=== PATIENT | female | born 1960 | race Caucasian/White ===

== ENCOUNTER 2017-10-27 19:17 | Emergency (ER) | payer BC, OTHER ==
[~2017-10-27] VITALS: Ht 157.5 cm; Wt 90.9 kg
[2017-10-27 19:26] VITALS: BP 152/85
[2017-10-27 20:05] LABS: BASOPHILS # (AUTO) 0.1 X10'3 (0-0.2); BASOPHILS % (AUTO) 0.5 % (0-1); EOSINOPHILS # (AUTO) 0.3 X10'3 (0-0.9); EOSINOPHILS % (AUTO) 2.9 % (0-6); HEMATOCRIT 38.8 % (35.0-45.0); HEMOGLOBIN 13.5 g/dl (12.0-16.0); LYMPHOCYTES # (AUTO) 3.8 X10'3 (1.1-4.8); LYMPHOCYTES % (AUTO) 36.4 % (21-51); MEAN CORPUSCULAR HEMOGLOBIN 31.8 PG (27.0-31.0); MEAN CORPUSCULAR HGB CONC 34.8 % (33.0-36.5); MEAN CORPUSCULAR VOLUME 91.6 FL (78-98); MEAN PLATELET VOLUME 7.4 FL (7.4-10.4); MONOCYTES # (AUTO) 0.7 X10'3 (0-0.9); MONOCYTES % (AUTO) 6.7 % (2-12); NEUTROPHILS # (AUTO) 5.6 X10'3 (1.8-7.7); NEUTROPHILS % (AUTO) 53.5 % (42-75); PLATELET COUNT 370 X10'3 (140-440); RED BLOOD COUNT 4.24 X10'6 (4.20-5.60); RED CELL DISTRIBUTION WIDTH 13.7 % (11.5-14.5); WHITE BLOOD COUNT 10.5 X10'3 (4.5-11.0)
[2017-10-27 20:30] LABS: ALANINE AMINOTRANSFERASE 40 U/L (12-78); ALBUMIN 3.9 G/DL (3.4-5.0); ALBUMIN/GLOBULIN RATIO 1.1 (1.1-1.5); ALKALINE PHOSPHATASE 62 IU/L (46-116); ANION GAP 13 (8-16); ASPARTATE AMINO TRANSFERASE 26 U/L (10-37); BILIRUBIN,TOTAL 0.2 MG/DL (0.1-1.0); BLOOD UREA NITROGEN 24 MG/DL (7-18); CALCIUM 8.9 MG/DL (8.5-10.1); CHLORIDE 107 MMOL/L (99-107); ETHANOL 0.183 GM/DL (0.0-0.010); GLUCOSE 103 MG/DL (70-104); POTASSIUM 3.3 MMOL/L (3.5-5.1); SODIUM 144 MMOL/L (135-145); TOTAL PROTEIN 7.3 G/DL (6.4-8.2); eGFR 57 ML/MIN
[2017-10-27 20:46] LABS: CLARITY,URINE CLEAR (Clear); COLOR,URINE STRAW (Yellow); GLUCOSE, URINE NEGATIVE (Neg); KETONES,URINE NEGATIVE (Neg); LEUKOCYTE ESTERASE ,URINE NEGATIVE (Neg); NITRITES, URINE NEGATIVE (Neg); OCCULT BLOOD,URINE NEGATIVE (Neg); PH,URINE 5.5 (4.8-8.0); PROTEIN,URINE NEGATIVE (Neg); UROBILINOGEN,URINE 0.2 E.U/dL (0.2-1.0)
[2017-10-27 20:47] LABS: URINE AMPHETAMINE SCREEN NEGATIVE (Neg); URINE BARBITUATE SCREEN NEGATIVE (Neg); URINE BENZODIAZEPINES SCREEN POSITIVE (Neg); URINE CANNABINOID SCREEN NEGATIVE (Neg); URINE COCAINE SCREEN NEGATIVE (Neg); URINE METHADONE SCREEN NEGATIVE (Neg); URINE OPIATE SCREEN NEGATIVE (Neg); URINE PHENCYCLIDINE SCREEN NEGATIVE (Neg)
[2017-10-27 20:53] LABS: UA COLLECTION TYPE CLN CATCH MIDSTREAM
== END 2017-10-28 05:34 | disposition home or self-care (01) ==
LOC: ER 19:17
DX: F32.9 Major depressive disorder, single episode, unspecified (principal); F41.9 Anxiety disorder, unspecified; I10 Essential (primary) hypertension; F10.129 Alcohol abuse with intoxication, unspecified; Z88.1 Allergy status to other antibiotic agents; Z88.2 Allergy status to sulfonamides; Z88.8 Allergy status to other drugs, medicaments and biological substances
CPT/HCPCS: 36415; 80053; 80305; 80320; 81003; 84443; 85025; 93005; 99284; 99285

== ENCOUNTER 2018-03-08 18:07 | Inpatient (IN) | payer BC, OTHER ==
[~2018-03-08] VITALS: Ht 165.1 cm; Wt 98.8 kg
[~2018-03-08 18:07] MED LIST: etomidate 2mg/ml inj. ONE; rocuronium 10mg/ml inj IV ONE
[2018-03-08] MEDS ORDERED: metroNIDAZOLE-Flagyl 500mg/NS 100 ML IV STA (18:33)
[2018-03-08] MEDS ORDERED: piperacillin/tazo 3.375gm/50ml 50 ML IV ONE (18:35)
[2018-03-08] MEDS ORDERED: MIDAZolam 5mg/ml 2ml vial IV ONE (18:35)
[2018-03-08] MEDS ORDERED: midazolam 100mg in NS 100ml 100 ML IV ONE (18:35)
[2018-03-08] MEDS ORDERED: vancomycin/NS 1 GM ADD-VANTAGE 250 ML IV ONE (18:35)
[2018-03-08] MEDS ORDERED: etomidate 2mg/ml inj. IV ONE (18:35)
[2018-03-08] MEDS ORDERED: rocuronium 10mg/ml inj IV ONE (18:35)
[2018-03-08 18:51] LABS: ABG HCO3 17.8 mmol/L (22.0-26.0); ABG OXYGEN SATURATION 97.5 % (95-98); ABG PCO2 (T) 32.8 mmHg (32.0-45.0); ABG PO2 (T) 108.3 mmHg (83-108); ALLEN'S TEST Positive; FMetHb 0.3 % (0.3-1.12); FO2Hb 97.2 % (94-100); MINUTE VOLUME 9 L/min; PATIENT TEMPERATURE 36.3; PEEP 5 cm H2O; RESPIRATORY RATE 18 b/min; RESPIRATORY RATE (OBSERVED) 18 b/min; TIDAL VOLUME 475 mL
[2018-03-08] MEDS ORDERED: RISP1TAB13 PO (18:54)
[2018-03-08] MEDS ORDERED: ALPR1TAB7 PO (18:54)
[2018-03-08] MEDS ORDERED: ZOLP10TA PO (18:54)
[2018-03-08] MEDS ORDERED: BUSP10TA10 PO (18:54)
[2018-03-08] MEDS ORDERED: normal saline 1000ML IV soln IV ONE (18:55)
[2018-03-08] MEDS ORDERED: BENA40TA2 PO (18:58)
[2018-03-08] MEDS ORDERED: HYDR12.55 PO (18:58)
[2018-03-08 18:59] LABS: CLARITY,URINE CLEAR (Clear); COLOR,URINE YELLOW (Yellow); GLUCOSE, URINE NEGATIVE (Neg); KETONES,URINE NEGATIVE (Neg); LEUKOCYTE ESTERASE ,URINE NEGATIVE (Neg); NITRITES, URINE NEGATIVE (Neg); OCCULT BLOOD,URINE TRACE-LYSED (Neg); PH,URINE 5.5 (4.8-8.0); PROTEIN,URINE NEGATIVE (Neg); UA COLLECTION TYPE FOLEY CATH; UROBILINOGEN,URINE 0.2 E.U/dL (0.2-1.0)
[2018-03-08 19:09] LABS: BACTERIA,URINE NONE SEEN /HPF (Neg); MUCUS STRANDS FEW /LPF (Neg); RBC,URINE 0-2 /HPF (0-2); SQUAMOUS EPITHELIAL CELL,UR FEW /LPF (FEW); WBC,URINE 0-4 /HPF (0-4)
[2018-03-08 19:13] LABS: URINE AMPHETAMINE SCREEN NEGATIVE (Neg); URINE BARBITUATE SCREEN NEGATIVE (Neg); URINE BENZODIAZEPINES SCREEN POSITIVE (Neg); URINE CANNABINOID SCREEN NEGATIVE (Neg); URINE COCAINE SCREEN NEGATIVE (Neg); URINE METHADONE SCREEN NEGATIVE (Neg); URINE OPIATE SCREEN NEGATIVE (Neg); URINE PHENCYCLIDINE SCREEN NEGATIVE (Neg)
[2018-03-08 19:18] LABS: ALANINE AMINOTRANSFERASE 45 U/L (12-78); ALBUMIN 3.2 G/DL (3.4-5.0); ALKALINE PHOSPHATASE 54 IU/L (46-116); ANION GAP 13 (8-16); ASPARTATE AMINO TRANSFERASE 34 U/L (10-37); BILIRUBIN,TOTAL 0.1 MG/DL (0.1-1.0); BLOOD UREA NITROGEN 15 MG/DL (7-18); CALCIUM 8.6 MG/DL (8.5-10.1); CHLORIDE 105 MMOL/L (99-107); CREATININE 0.79 MG/DL (0.40-0.90); GLUCOSE 117 MG/DL (70-104); SODIUM 140 MMOL/L (135-145); TOTAL CARBON DIOXIDE 21.8 MMOL/L (24-32); TOTAL PROTEIN 6.5 G/DL (6.4-8.2); eGFR 75 ML/MIN
[2018-03-08 19:24] LABS: ACETAMINOPHEN < 2.0 UG/ML (10-30)
[2018-03-08 19:30] LABS: BASOPHILS % (AUTO) 0.8 % (0-1); EOSINOPHILS # (AUTO) 0.1 X10'3 (0-0.9); EOSINOPHILS % (AUTO) 2.2 % (0-6); HEMATOCRIT 33.7 % (35.0-45.0); HEMOGLOBIN 11.6 g/dl (12.0-16.0); LYMPHOCYTES # (AUTO) 1.7 X10'3 (1.1-4.8); LYMPHOCYTES % (AUTO) 28.9 % (21-51); MEAN CORPUSCULAR HEMOGLOBIN 32.5 PG (27.0-31.0); MEAN CORPUSCULAR HGB CONC 34.4 % (33.0-36.5); MEAN CORPUSCULAR VOLUME 94.6 FL (78-98); MEAN PLATELET VOLUME 7.2 FL (7.4-10.4); MONOCYTES # (AUTO) 0.5 X10'3 (0-0.9); MONOCYTES % (AUTO) 8.8 % (2-12); NEUTROPHILS # (AUTO) 3.4 X10'3 (1.8-7.7); NEUTROPHILS % (AUTO) 59.3 % (42-75); PLATELET COUNT 207 X10'3 (140-440); RED BLOOD COUNT 3.56 X10'6 (4.20-5.60); RED CELL DISTRIBUTION WIDTH 14.7 % (11.5-14.5); WHITE BLOOD COUNT 5.7 X10'3 (4.5-11.0)
[2018-03-08] MEDS ORDERED: potassium 10mEq/100ml NS w/LIDOcaine (10mg/bag) IV ONE (19:40)
[2018-03-08] MEDS: magnesium/D5W IVPB 100 ML IV SCH ×2 (19:46→20:40)
[2018-03-08] MEDS ORDERED: sodium bicarbonate inj. 133.8 MEQ in dextrose 5%-water 1,001.3333 ML IV SCH (19:55)
[2018-03-08] MEDS ORDERED: morphine/NS 100mg/100ml bag 100 ML IV SCH (19:56)
[2018-03-08] MEDS ORDERED: acetaminophen 325mg tablet PO PRN ×2 (20:00)
[2018-03-08] MEDS ORDERED: potassium Cl 40MEQ/250ML bag 250 ML IV SCH (20:00)
[2018-03-08] MEDS ORDERED: potassium Cl 40MEQ/250ML bag 250 ML IV PRN (20:00)
[2018-03-08] MEDS ORDERED: potassium Cl 20 mEq SR tablet PO PRN ×2 (20:00)
[2018-03-08] MEDS ORDERED: ipratropium/albuterol 3ml nebule NEB PRN (20:00)
[2018-03-08] MEDS: K, MAG and/or Phos replacement - Verify level? MC SCH (20:00)
[2018-03-08] MEDS ORDERED: ondansetron/PF 4mg/2ml inj IV PRN (20:00)
[2018-03-08] MEDS ORDERED: magnesium hydroxide 30ml (MOM) UD suspension PO PRN (20:00)
[2018-03-08] MEDS ORDERED: morphine 4 MG/ML inj SYRINge IV PRN ×2 (20:00)
[2018-03-08] MEDS: sodium bicarbonate (8.4%) inj. 150 MEQ in dextrose 5%-water 1,000 ML IV SCH (20:20)
[2018-03-08] MEDS ORDERED: propofol 1000mg/100ml bottle 100 ML IV ONE (21:02)
[2018-03-08 21:30] VITALS: BP 150/98
[2018-03-08 22:15] VITALS: BP 154/91
[2018-03-08 22:45] VITALS: BP 102/87
[2018-03-08] MEDS: midazolam 100mg in NS 100ml 100 ML IV PRN (23:06)
[2018-03-08 23:15] VITALS: BP 92/58
[2018-03-08] MEDS ORDERED: potassium Cl 40MEQ/250ML bag 500 ML IV ONE (23:20)
[2018-03-08] MEDS ORDERED: magnesium/D5W IVPB 100 ML IV SCH (23:20)
[2018-03-08 23:30] VITALS: BP 101/65
[2018-03-08 23:45] VITALS: BP 97/69
[2018-03-09] VITALS (25 sets, daily range): BP systolic 100–181; BP diastolic 61–104
[2018-03-09] MEDS: piperacillin/tazo 3.375gm/50ml 50 ML IV SCH ×2 (03:10→08:59)
[2018-03-09 03:55] LABS: ABG BASE EXCESS -2.2 mmol/L (-2.0-3.0); ABG HCO3 21.8 mmol/L (22.0-26.0); ABG OXYGEN SATURATION 98.8 % (95-98); ABG PCO2 (T) 35.4 mmHg (32.0-45.0); ABG PH (T) 7.409 (7.350-7.450); ABG PO2 (T) 153.1 mmHg (83-108); ALLEN'S TEST Positive; FCOHb 0.3 % (0.5-1.5); FMetHb 0.1 % (0.3-1.12); FO2Hb 98.4 % (94-100); MINUTE VOLUME 13 L/min; PATIENT TEMPERATURE 37.2; PEEP 5 cm H2O; RESPIRATORY RATE 18 b/min; RESPIRATORY RATE (OBSERVED) 25 b/min; TIDAL VOLUME 475 mL; TOTAL HEMOGLOBIN 11.5 G/dl (12.0-16.0)
[2018-03-09] MEDS: propofol 1000mg/100ml bottle 100 ML IV PRN ×2 (04:29→09:12)
[2018-03-09 06:30] LABS: BASOPHILS % (AUTO) 0.4 % (0-1); EOSINOPHILS # (AUTO) 0.2 X10'3 (0-0.9); HEMATOCRIT 29.2 % (35.0-45.0); HEMOGLOBIN 10.1 g/dl (12.0-16.0); LYMPHOCYTES % (AUTO) 20.2 % (21-51); MEAN CORPUSCULAR HEMOGLOBIN 32.5 PG (27.0-31.0); MEAN CORPUSCULAR HGB CONC 34.7 % (33.0-36.5); MEAN CORPUSCULAR VOLUME 93.8 FL (78-98); MEAN PLATELET VOLUME 7.2 FL (7.4-10.4); MONOCYTES % (AUTO) 9.8 % (2-12); NEUTROPHILS # (AUTO) 6.7 X10'3 (1.8-7.7); NEUTROPHILS % (AUTO) 67.6 % (42-75); PLATELET COUNT 204 X10'3 (140-440); RED BLOOD COUNT 3.12 X10'6 (4.20-5.60); RED CELL DISTRIBUTION WIDTH 14.4 % (11.5-14.5); WHITE BLOOD COUNT 9.9 X10'3 (4.5-11.0)
[2018-03-09 06:51] LABS: ALANINE AMINOTRANSFERASE 35 U/L (12-78); ALBUMIN 2.6 G/DL (3.4-5.0); ALKALINE PHOSPHATASE 44 IU/L (46-116); ANION GAP 9 (8-16); ASPARTATE AMINO TRANSFERASE 23 U/L (10-37); BILIRUBIN,TOTAL 0.4 MG/DL (0.1-1.0); BLOOD UREA NITROGEN 12 MG/DL (7-18); BUN/CREATININE RATIO 13.3 (6.6-38.0); CALCIUM 7.2 MG/DL (8.5-10.1); CHLORIDE 107 MMOL/L (99-107); CREATINE KINASE 259 U/L (26-192); GLUCOSE 106 MG/DL (70-104); MAGNESIUM 1.9 MG/DL (1.5-2.4); PHOSPHORUS 2.1 MG/DL (2.3-4.5); POTASSIUM 3.7 MMOL/L (3.5-5.1); SODIUM 141 MMOL/L (135-145); TOTAL CARBON DIOXIDE 24.8 MMOL/L (24-32); TOTAL PROTEIN 5.2 G/DL (6.4-8.2); eGFR 65 ML/MIN
[2018-03-09] MEDS: sodium bicarbonate (8.4%) inj. 150 MEQ in dextrose 5%-water 1,000 ML IV SCH (07:52)
[2018-03-09] MEDS ORDERED: potassium Cl oral solution 20 MEQ/15 ML PO PRN ×2 (08:00)
[2018-03-09] MEDS: K, MAG and/or Phos replacement - Verify level? MC SCH (08:00)
[2018-03-09] MEDS: pantoprazole 40 MG vial IV SCH (08:56)
[2018-03-09] MEDS: midazolam 100mg in NS 100ml 100 ML IV PRN (08:56)
[2018-03-09] MEDS ORDERED: sodium phosphate inj. 30 MMOL in dextrose 5%-water 250 ML IV PRN (11:11)
[2018-03-09] MEDS ORDERED: sodium phosphate inj. 15 MMOL in dextrose 5%-water 150 ML IV PRN (11:11)
[2018-03-09] MEDS ORDERED: Neutra Phos packet PO PRN (11:15)
[2018-03-09] MEDS ORDERED: magnesium/D5W IVPB 100 ML IV PRN (11:15)
[2018-03-09] MEDS ORDERED: magnesium 4gm in 100ml NS 100 ML IV PRN (11:15)
[2018-03-09] MEDS ORDERED: magnesium Cl slow-release 64mg tablet PO PRN (11:15)
[2018-03-09 11:22] LABS: PARTIAL THROMBOPLASTIN TIME 24 SECONDS (22-32); PROTHROMBIN TIME 10.4 SECONDS (9.0-12.0)
[2018-03-09] MEDS ORDERED: LORazepam 2 mg/ml vial IV PRN ×2 (11:30)
[2018-03-09] MEDS: [UNRECOGNIZED DRUG - REMARK] IV SCH ×4 (11:56)
[2018-03-09] MEDS: enoxaparin 40mg/0.4ml syringe SQ SCH (14:22)
[2018-03-09] MEDS ORDERED: mineral oil/petrolatum ophthal oint EACHEYE SCH (20:00)
[2018-03-10] VITALS (17 sets, daily range): BP systolic 113–194; BP diastolic 53–93
[2018-03-10] MEDS ORDERED: HYDROcodone/acetaminophen 5mg/325mg tablet PO PRN (03:35)
[2018-03-10 05:07] LABS: BASOPHILS # (AUTO) 0.1 X10'3 (0-0.2); BASOPHILS % (AUTO) 0.9 % (0-1); EOSINOPHILS # (AUTO) 0.3 X10'3 (0-0.9); EOSINOPHILS % (AUTO) 3.6 % (0-6); HEMATOCRIT 30.9 % (35.0-45.0); HEMOGLOBIN 10.7 g/dl (12.0-16.0); LYMPHOCYTES # (AUTO) 2.3 X10'3 (1.1-4.8); LYMPHOCYTES % (AUTO) 28.7 % (21-51); MEAN CORPUSCULAR HEMOGLOBIN 32.8 PG (27.0-31.0); MEAN CORPUSCULAR HGB CONC 34.5 % (33.0-36.5); MEAN CORPUSCULAR VOLUME 95.2 FL (78-98); MEAN PLATELET VOLUME 7.3 FL (7.4-10.4); MONOCYTES # (AUTO) 0.8 X10'3 (0-0.9); NEUTROPHILS # (AUTO) 4.5 X10'3 (1.8-7.7); NEUTROPHILS % (AUTO) 56.8 % (42-75); PLATELET COUNT 207 X10'3 (140-440); RED BLOOD COUNT 3.25 X10'6 (4.20-5.60); RED CELL DISTRIBUTION WIDTH 14.4 % (11.5-14.5); WHITE BLOOD COUNT 7.9 X10'3 (4.5-11.0)
[2018-03-10] MEDS ORDERED: hydrALAZINE 20mg/ml inj. IV ONE (05:25)
[2018-03-10 05:31] LABS: ALANINE AMINOTRANSFERASE 33 U/L (12-78); ALBUMIN 2.7 G/DL (3.4-5.0); ALBUMIN/GLOBULIN RATIO 0.9 (1.1-1.5); ALKALINE PHOSPHATASE 54 IU/L (46-116); ANION GAP 6 (8-16); ASPARTATE AMINO TRANSFERASE 44 U/L (10-37); BILIRUBIN,TOTAL 0.5 MG/DL (0.1-1.0); BLOOD UREA NITROGEN 10 MG/DL (7-18); BUN/CREATININE RATIO 14.1 (6.6-38.0); CALCIUM 7.8 MG/DL (8.5-10.1); CHLORIDE 104 MMOL/L (99-107); CREATININE 0.71 MG/DL (0.40-0.90); GLUCOSE 101 MG/DL (70-104); MAGNESIUM 2.1 MG/DL (1.5-2.4); PHOSPHORUS 3.3 MG/DL (2.3-4.5); POTASSIUM 3.3 MMOL/L (3.5-5.1); SODIUM 138 MMOL/L (135-145); TOTAL CARBON DIOXIDE 27.8 MMOL/L (24-32); TOTAL PROTEIN 5.7 G/DL (6.4-8.2); eGFR 85 ML/MIN
[2018-03-10] MEDS: pantoprazole 40 MG vial IV SCH (07:37)
[2018-03-10] MEDS: enoxaparin 40mg/0.4ml syringe SQ SCH (07:37)
[2018-03-10] MEDS: K, MAG and/or Phos replacement - Verify level? MC SCH (07:38)
[2018-03-10] MEDS ORDERED: lisinopril 20mg tablet PO SCH (08:00)
[2018-03-10] MEDS ORDERED: enoxaparin 40mg/0.4ml syringe SQ SCH (08:00)
[2018-03-10] MEDS ORDERED: K and/or MAG REPLACEMENT MC SCH (08:00)
[2018-03-10] MEDS: [UNRECOGNIZED DRUG - REMARK] IV SCH ×4 (08:19)
[2018-03-10] MEDS ORDERED: FLUV50TA3 PO (17:12)
[2018-03-11] MEDS ORDERED: pantoprazole 40mg Tablet.DR PO SCH (07:30)
== END 2018-03-10 17:18 | disposition home or self-care (01) | DRG 917 ==
LOC: ER 18:08 → ED HOLD 19:56 → ICU 2S 20:45 → CICU 2S 03-09 16:52
PROVIDERS: ADMIT Internal Medicine Critical Care Medicine; ATTEND Internal Medicine Critical Care Medicine
PROC: 5A1935Z Respiratory Ventilation, Less than 24 Consecutive Hours (ICD-10-PCS; principal; 2018-03-08)
PROC: 0BH17EZ Insertion of Endotracheal Airway into Trachea, Via Natural or Artificial Opening (ICD-10-PCS; 2018-03-08)
PROC: 02HV33Z Insertion of Infusion Device into Superior Vena Cava, Percutaneous Approach (ICD-10-PCS; 2018-03-08)
PROC: B548ZZA Ultrasonography of Superior Vena Cava, Guidance (ICD-10-PCS; 2018-03-08)
DX: T43.592A Poisoning by other antipsychotics and neuroleptics, intentional self-harm, initial encounter (principal); J18.9 Pneumonia, unspecified organism; J96.90 Respiratory failure, unspecified, unspecified whether with hypoxia or hypercapnia; E87.4 Mixed disorder of acid-base balance; E87.6 Hypokalemia; F10.129 Alcohol abuse with intoxication, unspecified; F32.9 Major depressive disorder, single episode, unspecified; I10 Essential (primary) hypertension; K21.9 Gastro-esophageal reflux disease without esophagitis; T42.4X2A Poisoning by benzodiazepines, intentional self-harm, initial encounter; T42.6X2A Poisoning by other antiepileptic and sedative-hypnotic drugs, intentional self-harm, initial encounter; F41.9 Anxiety disorder, unspecified; G89.29 Other chronic pain; Z88.8 Allergy status to other drugs, medicaments and biological substances; Z79.899 Other long term (current) drug therapy; Z88.2 Allergy status to sulfonamides; Z88.1 Allergy status to other antibiotic agents; Z90.49 Acquired absence of other specified parts of digestive tract; Y92.89 Other specified places as the place of occurrence of the external cause; Y90.9 Presence of alcohol in blood, level not specified
CPT/HCPCS: 36415; 36556; 36600; 71045; 73030; 80053; 80305; 80320; 80329; 81001; 82550; 82803; 82948; 83605; 83735; 84100; 84145; 84443; 85018; 85025; 85610; 85730; 87040; 87070; 93005; 94002; 94003; 94760; 96365; 96368; 96375; 96376; 99291; A4620; A6213; C1751; C9113; J0360; J1650; J2250; J2270; J2543; J2704; J3370; J3411; J3480; J3490; J7030; J7060; J7070

== ENCOUNTER 2018-03-10 16:40 | Emergency (ER) | payer OTHER ==
[~2018-03-10] VITALS: Ht 545.9 cm; Wt 91.0 kg
[~2018-03-10 16:40] MED LIST changes: +ALPR1TAB7 PO; +BENA40TA2 PO; +BUSP10TA10 PO; +HYDR12.55 PO; +RISP1TAB13 PO; +ZOLP10TA PO; -etomidate 2mg/ml inj. ONE; -rocuronium 10mg/ml inj IV ONE
[2018-03-10] MEDS ORDERED: FLUV50TA3 PO (17:12)
[2018-03-10] MEDS ORDERED: zolpidem 5mg tablet PO PRN (17:50)
[2018-03-10] MEDS ORDERED: ibuprofen tablet 400 MG TABLET PO ONE (17:50)
[2018-03-10] MEDS ORDERED: lisinopril 20mg tablet PO SCH (21:00)
[2018-03-11] MEDS ORDERED: HYDROchlorothiazide 12.5mg capsule PO SCH (08:00)
[2018-03-11] MEDS ORDERED: QUEtiapine 25mg tablet PO SCH (08:00)
[2018-03-11] MEDS ORDERED: fluvoxamine 25 MG tablet PO SCH (08:00)
[2018-03-11 12:56] LABS: CLARITY,URINE CLEAR (Clear); COLOR,URINE STRAW (Yellow); GLUCOSE, URINE NEGATIVE (Neg); KETONES,URINE NEGATIVE (Neg); LEUKOCYTE ESTERASE ,URINE NEGATIVE (Neg); NITRITES, URINE NEGATIVE (Neg); OCCULT BLOOD,URINE SMALL (Neg); PROTEIN,URINE NEGATIVE (Neg); UROBILINOGEN,URINE 0.2 E.U/dL (0.2-1.0)
[2018-03-11 13:09] LABS: UA COLLECTION TYPE CLN CATCH MIDSTREAM
[2018-03-11 13:23] LABS: BACTERIA,URINE NONE SEEN /HPF (Neg); SQUAMOUS EPITHELIAL CELL,UR FEW /LPF (FEW); WBC,URINE NONE SEEN /HPF (0-4)
[2018-03-11 17:47] VITALS: BP 196/94
[2018-03-11] MEDS ORDERED: busPIRone 5mg tablet PO SCH (21:00)
[2018-03-11] MEDS ORDERED: citalopram 20mg tablet PO SCH (21:00)
== END 2018-03-11 17:00 ==
LOC: ER 16:40
DX: F10.20 Alcohol dependence, uncomplicated (principal); I10 Essential (primary) hypertension; K21.9 Gastro-esophageal reflux disease without esophagitis; G89.29 Other chronic pain; Z90.49 Acquired absence of other specified parts of digestive tract; Z90.89 Acquired absence of other organs; Z88.0 Allergy status to penicillin; Z88.2 Allergy status to sulfonamides; Z88.8 Allergy status to other drugs, medicaments and biological substances; Z79.899 Other long term (current) drug therapy; Y90.9 Presence of alcohol in blood, level not specified
CPT/HCPCS: 81001; 99285

== ENCOUNTER 2022-04-28 20:59 | Emergency (ER) | payer BC ==
[~2022-04-28] VITALS: Ht 154.9 cm; Wt 79.5 kg
[~2022-04-28 20:59] MED LIST changes: -BENA40TA2 PO; +BENA40TA46 PO; +FLUV50TA9 PO
[2022-04-28 21:16] VITALS: BP 131/78
[2022-04-29] MEDS ORDERED: CHLO25CA10 PO (00:17)
--- NOTE | 2022-04-29 00:30 | NUR ---
PT LEFT PRIOR TO BEING ASSESSED BY NURSE. TX AND DC WITH
== END 2022-04-29 00:30 | disposition home or self-care (01) ==
LOC: ER 21:00
DX: F10.920 Alcohol use, unspecified with intoxication, uncomplicated (principal); K21.9 Gastro-esophageal reflux disease without esophagitis; G89.29 Other chronic pain; F31.9 Bipolar disorder, unspecified; Z90.49 Acquired absence of other specified parts of digestive tract; Z88.0 Allergy status to penicillin; Z88.2 Allergy status to sulfonamides; Z88.8 Allergy status to other drugs, medicaments and biological substances; Z79.899 Other long term (current) drug therapy
CPT/HCPCS: 99283